=== PATIENT | female | born 1940 | race Caucasian/White ===

== ENCOUNTER 2020-09-10 20:47 | Inpatient (IN) | payer MEDICARE ==
[~2020-09-10] VITALS: Ht 152.4 cm; Wt 68.0 kg
[~2020-09-10 20:47] MED LIST: ALENDRONATE SOD70 MG PO; ARICEPT10 MG PO; BENTYL 10MG CAP10 MG PO; DULERA 100 MCG8.8 GM INH; ECOTRIN81 MG PO; GLUCOPHAGE500 MG PO; HYDRALAZINE HCL50 MG PO; LOSARTAN-HCTZ1 EAC2 PO; NORCO 10-325 T1 EACH PO; PRAVACHOL40 MG PO; RANITIDINE HCL300 MG PO; TENORMIN 50 MG50 MG PO; VITAMIN D250000 UNIT PO; ZOLOFT25 MG PO
[2020-09-10 23:05] LABS: HEMOGLOBIN 13.2 gm/dl (12.3-15.3); RED BLOOD COUNT 4.18 M/UL (4.00-5.10); WHITE BLOOD COUNT 7.9 K/UL (4.5-11.0)
[2020-09-10 23:26] LABS: BUN/CREATININE RATIO 28 (0-10)
[2020-09-11] MEDS ORDERED: AUGMENTIN 875-1 EACH PO (03:04)
[2020-09-11] MEDS ORDERED: BENTYL 20MG TAB20 MG PO (03:04)
[2020-09-11] MEDS ORDERED: ZOFRAN ODT 4 MG4 MG PO (03:04)
[2020-09-11] MEDS ORDERED: PAROXETINE HCL20 MG PO (09:43)
[2020-09-11] MEDS ORDERED: LORATADINE10 MG PO (09:44)
[2020-09-11] MEDS ORDERED: VITAMIN D21250 MCG PO (09:45)
[2020-09-11] MEDS ORDERED: FOLIC ACID1 MG PO (09:46)
[2020-09-11] MEDS ORDERED: AMLODIPINE BESY10 MG PO (09:47)
[2020-09-11] MEDS ORDERED: FLOMAX0.4 MG PO (09:48)
[2020-09-11] MEDS ORDERED: IBU800 MG PO (09:49)
--- NOTE | 2020-09-12 09:36 | NUR ---
PT ASSISTED TO BEDSIDE COMMODE BY RN AND AMERICAN HISTORY TEACHER. PT FAMILY STEPPED OUT INTO HALLWAY DURING THIS. RN LEFT THE ROOM WITH PT ON BEDSIDE COMMODE AND AMERICAN HISTORY TEACHER AT BEDSIDE ADJUSTING BLANKETS AND PILLOWS. RN LEFT ROOM TO GIVE PAIN MEDS TO ANOTHER PT. AMERICAN HISTORY TEACHER CALLED RN PHONE AND STATED THAT PT HAD FALLEN TO HER KNEES OFF OF THE BEDSIDE COMMODE. WHEN RN WENT IN ROOM, PT WAS SITTING IN THE FLOOR ON HER KNEES. SHE WAS ASSISTED BACK TO BED BY RN, AMERICAN HISTORY TEACHER, AND FAMILY MEMBER (SON). UPON PHYSICAL ASSEMENT FOR INJURY, A BLOODY SPOT ON PT RIGHT KNEE WAS NOTED. PT SON STATED THAT THE PT HAD FALLEN AT HOME PRIOR TO COMING IN HERE AND HAD A SCAB ON EACH KNEE PREVIOUSLY. IT APPEARED IF THE OLD SCAB ON THE RIGHT KNEE CAME OPEN UPON PT FALL AT BEDSIDE. NO OTHER INJURIES NOTED. ALL FALL PRECAUTIONS ARE IN PLACE FOR PT. FAMILY AT BEDSIDE. NOTIFIED. ORDERED 2 VIEW XRAY OF KNEE FOR PRECAUTIONS. WCTM. PT AND PT SON INSTRUCTED ON THE USE OF ALARMS AND CALL LIGHT. BOTH STATED UNDERSTANDING.
[2020-09-12] MEDS ORDERED: MIRTAZAPINE15 MG PO (17:00)
[2020-09-13 04:49] LABS: HEMOGLOBIN 11.5 gm/dl (12.3-15.3); WHITE BLOOD COUNT 7.6 K/UL (4.5-11.0)
[2020-09-13 04:50] LABS: RED BLOOD COUNT 3.76 M/UL (4.00-5.10)
[2020-09-13 05:07] LABS: BUN/CREATININE RATIO 20 (0-10)
[2020-09-16 10:02] LABS: BUN/CREATININE RATIO 17 (0-10)
[2020-09-18 03:18] LABS: HEMOGLOBIN 12.1 gm/dl (12.3-15.3); RED BLOOD COUNT 3.92 M/UL (4.00-5.10); WHITE BLOOD COUNT 8.5 K/UL (4.5-11.0)
[2020-09-18 03:34] LABS: BUN/CREATININE RATIO 20 (0-10)
[2020-09-20] MEDS ORDERED: DOCUSATE SODIU100 MG PO (09:55)
[2020-09-20] MEDS ORDERED: QUETIAPINE FUM100 MG PO (09:55)
[2020-09-20] MEDS ORDERED: MELATONIN3 MG PO (09:55)
[2020-09-20] MEDS ORDERED: POLYETHYLENE GL17 GM PO (09:57)
[2020-09-20] MEDS ORDERED: COMBIVENT RESPIM4 GM INH (10:07)
[2020-09-20] MEDS ORDERED: K-TAB ER20 MEQ PO ×2 (10:41→11:29)
[2020-09-20] MEDS ORDERED: HUMALOG 10100 UNITS/ SC (11:36)
== END 2020-09-20 15:53 | disposition other institution (70) | DRG 391 ==
LOC: ER1 20:47 → CDU 09-11 04:12 → M/S 09-11 04:12
PROVIDERS: Emergency Medicine; Internal Medicine; ADMIT Internal Medicine
DX: K57.30 Diverticulosis of large intestine without perforation or abscess without bleeding (principal); G93.41 Metabolic encephalopathy; K50.10 Crohn's disease of large intestine without complications; Z20.822 Contact with and (suspected) exposure to COVID-19; E87.6 Hypokalemia; K80.20 Calculus of gallbladder without cholecystitis without obstruction; D13.2 Benign neoplasm of duodenum; K44.9 Diaphragmatic hernia without obstruction or gangrene; I10 Essential (primary) hypertension; R53.81 Other malaise; I25.10 Atherosclerotic heart disease of native coronary artery without angina pectoris; W19.XXXA Unspecified fall, initial encounter; J44.9 Chronic obstructive pulmonary disease, unspecified; E11.9 Type 2 diabetes mellitus without complications; F03.90 Unspecified dementia, unspecified severity, without behavioral disturbance, psychotic disturbance, mood disturbance, and anxiety; F32.9 Major depressive disorder, single episode, unspecified; R31.9 Hematuria, unspecified; K59.00 Constipation, unspecified; F41.9 Anxiety disorder, unspecified; E66.9 Obesity, unspecified; Z95.5 Presence of coronary angioplasty implant and graft; Z90.710 Acquired absence of both cervix and uterus; Z82.49 Family history of ischemic heart disease and other diseases of the circulatory system; Z87.891 Personal history of nicotine dependence; Z68.29 Body mass index [BMI] 29.0-29.9, adult
CPT/HCPCS: 36415; 70551; 73560; 76705; 80048; 80053; 81001; 82550; 82553; 82962; 83690; 84132; 84484; 85025; 94760; 96365; 96375; 97110; 97116-GP-CQ; 97162; 97166; 97530-GP-CQ; 99285; C9113; J0696; J1335; J1650; J2270; J2405; J3486; Q9967; U0002

== ENCOUNTER → 2020-10-12 | Outpatient (CLI) | payer MEDICARE ==
[~2020-10-12] MED LIST changes: +AMLODIPINE BESY10 MG PO; +AUGMENTIN 875-1 EACH PO; +BENTYL 20MG TAB20 MG PO; +COMBIVENT RESPIM4 GM INH; +DOCUSATE SODIU100 MG PO; +FLOMAX0.4 MG PO; +FOLIC ACID1 MG PO; +HUMALOG 10100 UNITS/ SC; +IBU800 MG PO; +K-TAB ER20 MEQ PO; +LORATADINE10 MG PO; +MELATONIN3 MG PO; +MIRTAZAPINE15 MG PO; +PAROXETINE HCL20 MG PO; +POLYETHYLENE GL17 GM PO; +QUETIAPINE FUM100 MG PO; +VITAMIN D21250 MCG PO; +ZOFRAN ODT 4 MG4 MG PO
== END ==
LOC: MAMO 10:54
DX: Z12.31 Encounter for screening mammogram for malignant neoplasm of breast (principal); N63.20 Unspecified lump in the left breast, unspecified quadrant
CPT/HCPCS: 77063; 77067